=== PATIENT | male | born 1940 | race Caucasian/White ===

== ENCOUNTER → 2022-02-12 12:23 | Outpatient (CLI) | payer MEDICARE, OTHER, SELFPAY ==
--- NOTE | 2022-02-12 | DI.MRI.S_ITS ---
PROCEDURE: MR ANKLE RT WO CON INDICATIONS: Achilles tendinitis, right leg TECHNIQUE: Noncontrast sagittal T1 spin echo and T2 fast spin echo with fat saturation, axial proton density fast spin echo and T2 fast spin echo with fat saturation, coronal T1 spin echo and T2 fast spin echo with fat saturation through the ankle/hindfoot. COMPARISON: None. FINDINGS: Image quality: Excellent. Bones and joints: Mild osseous edema is seen in the posterior calcaneus that is most likely reactive versus secondary to a direct contusion. Mild cystic changes are seen at the Achilles tendon insertion. The remaining visualized osseous structures demonstrate normal signal intensity. Minimal degenerative spurring of the dorsal talonavicular joint. No osteochondral lesion is seen in the talar dome. Medial structures: The deep and superficial layers of the deltoid ligament appear intact. The spring ligament components are intact. The posterior tibialis, flexor digitorum longus, and flexor hallucis longus tendons are intact. The posterior tibial neurovascular bundle appears normal within the tarsal tunnel, without extrinsic mass effect. Lateral structures: The anterior talofibular, calcaneofibular, and posterior talofibular ligaments appear intact. The anterior and posterior tibiofibular ligaments appear intact. The peroneus longus and brevis tendons demonstrate normal location and morphology. The sinus tarsi demonstrates normal fatty signal. Anterior structures: The tibialis anterior, extensor hallucis longus, and extensor digitorum longus tendons appear intact. The dorsal talonavicular ligament appears intact. Posterior and plantar structures: Diffuse subcutaneous edema is seen at the posterior portion of the ankle and extending over the medial and lateral malleoli. Mild thickening of the Achilles tendon is consistent with tendinosis. There is a moderate retrocalcaneal bursal effusion. Retro Achilles bursal fluid is also seen. Mild intramuscular edema is seen within the distal soleus muscle. Moderate thickening of the proximal plantar fascia is seen without surrounding edema. There is a small nonedematous plantar calcaneal enthesophyte. No abductor digiti quinti muscle atrophy to suggest Little neuropathy. IMPRESSION: 1. Prominent nonspecific subcutaneous soft tissue edema at the posterior aspect of the ankle extending over the medial and lateral malleoli. Recommend clinical correlation to exclude cellulitis. 2. Mild Achilles tendinosis without a discrete tendon tear. 3. Moderate retrocalcaneal bursal effusion or bursitis. Small amount of retro Achilles bursal fluid. 4. Osseous edema within the posterior calcaneus may be reactive the adjacent bursitis versus secondary to a contusion or ligamentous traction. No acute fracture. 5. Moderate chronic proximal plantar fasciitis. Dictated by: Brandon Wooten M.D. on 02/12/2022 at 16:31 Approved by: Brandon Wooten M.D. on 02/12/2022 at 16:41
== END ==
PROVIDERS: PCP Family Medicine; Referring Provider Podiatrist; Visit Provider Podiatrist
DX: M76.61 Achilles tendinitis, right leg (principal); M72.2 Plantar fascial fibromatosis; R60.0 Localized edema
CPT/HCPCS: 73721

== ENCOUNTER → 2022-05-15 10:59 | Outpatient (CLI) | payer MEDICARE, OTHER, SELFPAY ==
--- NOTE | 2022-05-15 11:01 | DI.MRI.S_ITS ---
PROCEDURE: MR LUMBAR SPINE WO CON INDICATIONS: Radiculopathy, lumbar region TECHNIQUE: Noncontrast sagittal T1 spin echo and T2 fast echo, sagittal STIR, and T2 fast spin echo through the lumbar spine. In cases with scoliosis, additional coronal T2 fast spin echo may be performed. COMPARISON: [facility] [place], CR, XR LUMBAR SPINE WITH OBLIQUES PLUS FLEXION EXTENSION, 05/06/2022, 11:29. FINDINGS: Image quality: This examination is limited by involuntary motion artifact. Alignment and Curvature: S-shaped scoliotic curvature is seen. Mild retrolisthesis is seen at L1-L2, L2-L3, and L3-L4. Bone Marrow: Marrow is of normal overall signal. No acute vertebral body compression fractures. Spinal Cord: Conus medullaris terminates at the L1 level. Visualized cord demonstrates normal signal and size. Paraspinous Soft Tissues: No paravertebral masses. T12-L1: Normal appearance. L1-L2: Moderate to severe loss of disc height and disc signal can be seen. Reactive marrow endplate changes are seen, which are hyperintense on T1-weighted and T2-weighted imaging and most consistent with fatty metaplasia (Modic type II changes). Bridging endplate osteophytes are seen. Moderate generalized disc bulge is seen. Posteriorly projected endplate osteophytes are seen. Mild facet joint hypertrophy is seen. There is at least moderate right-sided and moderate to severe left-sided neural foraminal narrowing. There is a degree of compression seen upon the exiting nerve roots. Mild to moderate central canal narrowing is seen. L2-L3: At least moderate loss of disc height and disc signal can be seen. Reactive marrow endplate changes are seen, which are hyperintense on T1-weighted and T2-weighted imaging and most consistent with fatty metaplasia (Modic type II changes). Moderate disc bulge is seen, which is eccentric to the right. Posteriorly projected endplate osteophytes are seen. Moderate facet joint hypertrophy is seen. There is at least moderate right-sided and moderate left-sided neural foraminal narrowing. At least moderate central canal narrowing is seen at this level, as on series 6, image 15. L3-L4: Moderate loss of disc height is seen. Loss of disc signal is seen. Reactive marrow endplate changes are seen posteriorly, which are hyperintense on T1-weighted and T2-weighted imaging and most consistent with fatty metaplasia (Modic type II changes). Moderate disc bulge is seen, which is eccentric to the right. There is a superimposed central disc protrusion. Moderate facet hypertrophy is seen, right worse than left. There is at least moderate bilateral neural foraminal narrowing seen. Moderate to severe central canal narrowing is seen at this level, as on series 6, image 19. L4-L5: Moderate loss of disc height is seen. Loss of disc signal is seen. At least moderate disc bulge is seen, which is eccentric to the right. There is a superimposed central disc protrusion. At least moderate right-sided and moderate left-sided facet hypertrophy can be seen. There is at least moderate right-sided and moderate left-sided neural foraminal narrowing. Moderate central canal narrowing is seen. L5-S1: At least moderate loss of disc height and disc signal can be seen. Reactive marrow endplate changes are seen, which are hyperintense on T1-weighted and T2-weighted imaging and most consistent with fatty metaplasia (Modic type II changes). At least moderate facet hypertrophy is seen at this level. There is at least moderate bilateral neural foraminal narrowing seen, left worse than right. Mild to moderate central canal narrowing is seen. IMPRESSION: Multiple levels of relatively prominent lumbar spine degenerative change can be seen. Dictated by: Delroy Aguilar M.D. on 05/15/2022 at 12:10 Approved by: Delroy Aguilar M.D. on 05/15/2022 at 12:16
== END ==
PROVIDERS: PCP Family Medicine; Referring Provider Physical Medicine & Rehabilitation Pain Medicine; Visit Provider Physical Medicine & Rehabilitation Pain Medicine
DX: M47.26 Other spondylosis with radiculopathy, lumbar region (principal)
CPT/HCPCS: 72148

== ENCOUNTER 2023-12-08 15:20 | Outpatient (CLI) | payer MEDICARE, OTHER, SELFPAY ==
[2023-12-08] VITALS (8 sets, daily range): BP systolic 126–198; BP diastolic 68–84; PULSE 54–62; RESP 12–21; TEMP 36.3; O2SAT 93–97
--- NOTE | 2023-12-08 16:00 | DI.RAD.S_ITS ---
PROCEDURE: PAIN SI JOINT INJECTION THOMAS INDICATIONS: Bilateral sacroiliac joint injections COMPARISON: None. FINDINGS: Fluoroscopic spot filming was performed to verify placement of spinal needles at the bilateral SI joint level(s), as labeled on the films. Appropriate location(s) of the needle tip(s) was confirmed by injection of iodinated contrast. IMPRESSION: Imaging guidance provided for bilateral SI joint pain injections. Dictated by: Gigi Sweet M.D. on 12/10/2023 at 21:38 Approved by: Gigi Sweet M.D. on 12/10/2023 at 21:38
--- NOTE | 2023-12-08 16:35 | P.PCN_ITS ---
Date/Time/Diagnoses Date of procedure: 12/08/23 Time of procedure: 16:35 Pre-procedure diagnosis: Sacroiliac joint pain/DJD Post-procedure diagnosis: same Procedure Notes Procedure: Fluoroscopic guided contrast controlled bilateral sacroiliac joint injection Indications: Perry is referred by Dr. Smith for treatment of bilateral sacroiliac joint DJD Physician: Milad Lerma Total Fluoroscopy time (seconds): 12 Total sedation minutes: 10 Complications: none Procedure in detail & Post-procedure care: Description of procedure Fluoroscopic guided, contrast controlled bilateral sacroiliac joint injection Following review of allergies and review of potential side effects and complications, including, but not necessarily limited to, infection, allergic reaction, local tissue breakdown, temporary as well as permanent nerve injury, paralysis, stroke and possible , the patient indicated that they understood and agreed to proceed. An informed consent was signed by the patient, witnessed by a nurse, and placed in the patient's chart. Additionally, other treatment options including modalities, medications, and physical therapy were reviewed with the patient. After review of previous anaesthesic history and IV conscious sedation the patient was deemed safe to proceed with today?s procedure with IV conscious sedation as ASA class II designation. Safety time-out was performed to confirm patient ID, procedure to be performed and site of procedure. IV sedation was accomplished with a combination of 2mg Versed were administered by the RN after DO order, titrated to patient comfort during the course of the procedure while the patient remained responsive to all verbal commands In the prone position following sterile prep and drape of the pelvic region, the hyper lucency on in the inferior aspect of the sacroiliac joint was identified fluoroscopically the skin was anesthetized be a 25 gauge 1.5 inch needle with approximately 2cc of 1% lidocaine solution. At this point, a 22 gauge 3 in sp inal needle was atraumatically introduced and advanced under fluoroscopic guidance into the inferior aspect of the right sacroiliac joint. Following negative aspiration, approximately 0.3cc of [id number]-[id number] was injected confirming intra-articular placement without vascular uptake. Radiographic data, including multiple fluoroscopic views of the pelvis, reveals a spinal needle in the sacroiliac joint hyper lucent zone. Subsequent view show flow contrast tear superiorly and inferiorly within the joint capsule without vascular intrathecal uptake. At this point a total of 1cc of 0.5% Marcaine was combined with 1cc of 6mg of betamethasone was injected without incident. Attention was then refocused the left sacroiliac joint where the procedure was replicated. The procedure tolerated the procedure well without signs or symptoms of complications prior to transfer to the recovery area continued monitoring without incident. The patient was then transferred to the recovery area with a bur observed for an appropriate time after the injection. The patient reverted a vas score of 7 prior to the procedure and post-procedure vas of 1. Postop instructions The patient was provided with a pain like to continue to record the patient's response to the target specific procedure prior to the patient's follow-up visit with the referring physician. Additionally, specific post injection care instructions and a contact number to our office were provided if concerns arise regarding the possible complications associated with procedure are suspected.
[2023-12-08] MEDS: MIDAZOLAM 2 MG/2 ML VIAL IV (16:39)
[2023-12-08] MEDS: BUPIVACAINE 0.5% (PF) 10 ML VIAL 2 ML INJ (16:40)
[2023-12-08] MEDS: iopamidoL 15 ML VIAL 3 ML INJ (16:41)
[2023-12-08] MEDS: BETAMETHASONE 30 MG/5 ML MDV 12 MG INJ (16:41)
--- NOTE | 2023-12-08 17:21 | PC.NURSE ---
Patient's BP decreased substantially in the post procedure area. It was noted in his chart from a clinic visit that his BP runs in the range of his last two BP's. Patient also stated that his BP is usually 120/70.
== END 2023-12-08 17:11 | disposition home or self-care (01) ==
PROVIDERS: PCP Family Medicine; Referring Provider Physical Medicine & Rehabilitation; Visit Provider Physical Medicine & Rehabilitation
DX: M53.3 Sacrococcygeal disorders, not elsewhere classified (principal); M46.1 Sacroiliitis, not elsewhere classified
CPT/HCPCS: 27096; 99152; J0702; J2250